=== PATIENT | female | born 1990 | race Two or more races ===

== ENCOUNTER 2019-07-25 13:31 | Emergency (ER) | payer MEDICAID, OTHER ==
[~2019-07-25] VITALS: Ht 160 cm; Wt 73.5 kg
--- NOTE | 2019-07-25 14:00 | NUR ---
PT PRESENTS TO ED WITH C/O RIGHT LOWER ABD "PRESSURE" X 1 MONTH, FEELING OF A "KNOT" TO RIGHT FLANK, AND CONSTIPATION X 1 MONTH. LMP THIS AM, HARD. PT ALSO C/O "PURPLE BUMP" INSIDE VAGINAL. PT EXAMINED BY JORGE LARA. PT A&O, RESPS EVEN AND UNLABORED. PT INSTRUCTED TO PROVIDE CLEAN CATCH UA, SUPPLIES PROVIDED. PT UP TO BATHROOM WITH STEADY GAIT AT THIS TIME.
--- NOTE | 2019-07-25 14:15 | NUR ---
REPORT FROM CHRISTI SULLIVAN. PT SEEN WALKING STEADILY BACK TO ROOM FROM RESTROOM WO ASSISTANCE. NAD NOTED.
--- NOTE | 2019-07-25 14:16 | NUR ---
report given to CHRISTI Hooper.
--- NOTE | 2019-07-25 14:30 | NUR ---
PT IN US.
--- NOTE | 2019-07-25 14:50 | NUR ---
PT RETURNED FROM US. LAB AT BEDSIDE. UA COLLECTED AND SENT TO LAB
[2019-07-25 15:00] LABS: BASOPHILS # (AUTO) 0.02 x10^3/uL (0-0.1); BASOPHILS % (AUTO) 0 % (0-1); EOSINOPHILS % (AUTO) 0 % (1-7); LYMPHOCYTES # (AUTO) 0.92 x10^3/uL (1-3.4); LYMPHOCYTES % (AUTO) 11 % (22-44); MD NO; MEAN CORPUSCULAR HEMOGLOBIN 30.9 pg (27.0-34.8); MEAN CORPUSCULAR HGB CONC 33.6 g/dL (32.4-35.8); MONOCYTES # (AUTO) 0.19 x10^3/uL (0.2-0.8); MONOCYTES % (AUTO) 2 % (2-9); NEUTROPHILS # (AUTO) 7.22 x10^3/uL (1.8-6.8); NEUTROPHILS % (AUTO) 86 % (42-75); PLATELET COUNT 347 x10^3/uL (130-400); RED BLOOD COUNT 4.73 x10^6/uL (3.82-5.3); RED CELL DISTRIBUTION WIDTH 13.3 % (9.6-15.2)
[2019-07-25 15:12] LABS: MICROSCOPIC AUTO
[2019-07-25 15:13] LABS: ALBUMIN 4.2 g/dL (3.4-5.0); ANION GAP 10 mmol/L (5-15); CALCIUM 9.3 mg/dL (8.5-10.1); CHLORIDE 106 mmol/L (98-107)
[2019-07-25 15:19] LABS: ALANINE AMINOTRANSFERASE 16 U/L (12-78); ALKALINE PHOSPHATASE 70 U/L (45-117); BILIRUBIN,TOTAL 0.7 mg/dL (0.2-1.0); CREATININE 0.78 mg/dL (0.55-1.02)
[2019-07-25 15:55] VITALS: BP 106/60
--- NOTE | 2019-07-25 15:55 | NUR ---
DC EDUCATION PROVIDED, PT DEMONSTRATES UNDERSTANDING. PT AMBUALTED STEADILY TO DC WITH RN
== END 2019-07-25 15:57 | disposition home or self-care (01) ==
LOC: ED 15:40
DX: N30.00 Acute cystitis without hematuria (principal)
CPT/HCPCS: 36415; 74021; 76830; 80053; 81001; 84703; 85025; 87086; 99284

== ENCOUNTER 2019-07-27 11:58 | Emergency (ER) | payer MEDICAID, OTHER ==
[~2019-07-27] VITALS: Ht 160 cm; Wt 72.9 kg
[2019-07-27 12:14] VITALS: BP 114/68
== END 2019-07-27 14:03 | disposition home or self-care (01) ==
LOC: ED 13:52
DX: T78.40XA Allergy, unspecified, initial encounter (principal); X58.XXXA Exposure to other specified factors, initial encounter
CPT/HCPCS: 99283

== ENCOUNTER 2019-08-17 16:16 | Emergency (ER) | payer SELFPAY ==
[~2019-08-17] VITALS: Ht 160 cm; Wt 71.6 kg
[2019-08-17] MEDS ORDERED: MAALOX/HYOSCYAMINE/LIDOCAINE 45 ML BTL PO ONE (17:00)
[2019-08-17 17:03] LABS: BASOPHILS # (AUTO) 0.02 x10^3/uL (0-0.1); BASOPHILS % (AUTO) 0 % (0-1); EOSINOPHILS # (AUTO) 0.01 x10^3/uL (0-0.4); EOSINOPHILS % (AUTO) 0 % (1-7); LYMPHOCYTES # (AUTO) 1.64 x10^3/uL (1-3.4); LYMPHOCYTES % (AUTO) 18 % (22-44); MD NO; MEAN CORPUSCULAR HEMOGLOBIN 30.5 pg (27.0-34.8); MEAN CORPUSCULAR HGB CONC 33.5 g/dL (32.4-35.8); MEAN CORPUSCULAR VOLUME 91.2 fL (80-100); MEAN PLATELET VOLUME 8.4 fL (7.4-10.4); MONOCYTES # (AUTO) 0.41 x10^3/uL (0.2-0.8); MONOCYTES % (AUTO) 5 % (2-9); NEUTROPHILS % (AUTO) 77 % (42-75); PLATELET COUNT 361 x10^3/uL (130-400); RED BLOOD COUNT 4.98 x10^6/uL (3.82-5.3); RED CELL DISTRIBUTION WIDTH 13.3 % (9.6-15.2)
[2019-08-17 17:04] LABS: ALANINE AMINOTRANSFERASE 34 U/L (12-78); ALBUMIN 4.2 g/dL (3.4-5.0); ANION GAP 7 mmol/L (5-15); CALCIUM 9.3 mg/dL (8.5-10.1); CHLORIDE 105 mmol/L (98-107); CREATININE 0.76 mg/dL (0.55-1.02)
[2019-08-17 17:08] LABS: ALKALINE PHOSPHATASE 74 U/L (45-117); BILIRUBIN,TOTAL 0.4 mg/dL (0.2-1.0); TOTAL PROTEIN 8.4 g/dL (6.4-8.2)
[2019-08-17 18:43] LABS: MICROSCOPIC AUTO
[2019-08-17 18:55] LABS: CULTURE INDICATED? YES
[2019-08-17] MEDS ORDERED: MAALOX/HYOSCYAMINE/LIDOCAINE 45 ML BTL ONE (20:21)
[2019-08-17 20:53] VITALS: BP 138/76
== END 2019-08-17 20:55 | disposition home or self-care (01) ==
LOC: ED 19:00
DX: K27.3 Acute peptic ulcer, site unspecified, without hemorrhage or perforation (principal); R12 Heartburn
CPT/HCPCS: 36415; 76700; 80053; 81001; 83690; 84703; 85025; 87086; 99284